=== PATIENT | male | born 1955 | race Two or more races ===

== ENCOUNTER 2024-09-10 10:15 | Day surgery (SDC) | payer MEDICARE, MEDICAID, SELFPAY ==
--- NOTE | 2024-09-09 07:00 | EKG_ITS ---
[facility] Test Date: 2024-09-09 Pat Name: SHOLA GARZA Department: Room: - Gender: Male [employer] Set Up Operator: PATRICIA : 1955 Requested By: Song Mcintyre Order Number: [id number] Reading MD: Song Mcintyre Measurements Intervals [place] Rate: 82 P: 65 KS: 144 QRS: 82 QRSD: 102 T: 46 QT: 354 QTc: 416 Interpretive Statements SINUS RHYTHM No previous ECG available for comparison /store/S0/[id number]/ecg/[id number].pdf
[2024-09-09 10:34] VITALS: BMI 26.8
[2024-09-09 11:03] LABS: Collection Type, Urine Clean Catch
[2024-09-09 11:15] LABS: Basophils # (Auto) 0.1 Thou/mm3 (0.0-0.2); Basophils % (Auto) 1 % (0-2.5); Eosinophils # (Auto) 0.1 Thou/mm3 (0.0-0.5); Eosinophils % (Auto) 2 % (0-10); Hematocrit 42.5 % (41.0-53.0); Hemoglobin 14.3 g/dL (13.5-16.0); Immature Granulocytes % (Auto) 2 % (0-0); Immature Granulocytes Auto 0.14 Thou/mm3 (0.00-0.00); Lymphocytes # (Auto) 1.8 Thou/mm3 (1.0-4.8); Lymphocytes % (Auto) 22 % (10-50); Mean Corpuscular HGB Conc 33.6 g/dl (31.0-37.0); Mean Corpuscular Hemoglobin 29.4 pg (25.0-35.0); Mean Corpuscular Volume 87 fL (80-100); Monocytes # (Auto) 0.7 Thou/mm3 (0.0-0.8); Monocytes % (Auto) 8 % (0-12); Neutrophils # (Auto) 5.5 Thou/mm3 (1.8-7.7); Neutrophils % (Auto) 66 % (37-80); Nucleated Red Blood Cell % 0 /100 WBC (0); Platelet Count 281 Thou/mm3 (140-440); RDW Standard Deviation 40.2 fL (35.1-43.9); Red Blood Count 4.86 Miln/mm3 (4.50-5.90); White Blood Count 8.2 Thou/mm3 (3.8-10.6)
--- NOTE | 2024-09-09 11:25 | ESHP_ITS ---
RE: SHOLA GARZA : 1955 DATE OF ADMISSION: 09/10/2024 HISTORY OF PRESENT ILLNESS: A 68-year-old gentleman who was referred to me with a history of elevated PSA of 12.1. The patient has a hard time urinating and has nocturia about 3 times. He is taking Flomax. There is no burning or no blood in the urine. PAST SURGICAL HISTORY: Included cholecystectomy. PAST MEDICAL HISTORY: The patient has no history of diabetes mellitus, but he has a history of hypertension. HOME MEDICATIONS: He takes; 1. Tamsulosin 0.4 mg every night. 2. Valsartan. 3. Aspirin. 4. Statin medication. ALLERGIES: NONE KNOWN. SOCIAL HISTORY: The patient has no children. PHYSICAL EXAMINATION: HEENT: Normal. NECK: Supple. LUNGS: Clear. CARDIOVASCULAR: Heart sounds are normal. ABDOMEN: Soft without any organomegaly. No guarding. No rigidity. EXTREMITIES: Normal. GENITOURINARY: Phallus is normal. Testes are down in scrotum. RECTAL: Mild firmness in the right prostatic lobe. LABORATORY DATA: Bladder scan revealed 212 mL of urine after he has urinated. IMPRESSION: 1. Prostatic obstruction. 2. Elevated PSA. PLAN: Cystoscopy and transrectal prostatic ultrasound with ultrasound-guided prostatic needle biopsy. Planned procedure, risks, and complications have been discussed with the patient. The patient has understood them and agreed to proceed. Thank you very much for your kind referral. cc: [facility] DT: 10:09:38 TT: 11:24:00 Ref: [id number] - TID: [id number]
[2024-09-09 11:38] LABS: Alanine Aminotransferase 20 U/L (10-49); Albumin, Serum 4.8 gm/dL (3.4-4.8); Albumin/Globulin Ratio 2.2 (1.2-2.2); Alkaline Phosphatase 90 U/L (46-116); Anion Gap 8 (7-16); Aspartate Amino Transferase 18 U/L (0-34); BUN/Creatinine Ratio 21 Ratio (12-20); Bilirubin,Total 0.4 mg/dL (0.3-1.2); Blood Urea Nitrogen 19 mg/dL (9-23); Calcium 9.5 mg/dL (8.3-10.6); Calcium (Corrected) 9.5 mg/dL (8.5-10.1); Carbon Dioxide 24.9 mMol/L (20.0-31.0); Chloride 104 mMol/L (98-107); Creatinine (Component) 0.9 mg/dL (0.6-1.3); Estimated Creatinine Clearance 68.9 mL/min (>60); Globulin 2.2 gm/dL (2.3-3.5); Glucose 105 mg/dL (74-106); Osmolality,Calculated 276 (275-295); Potassium 3.8 mMol/L (3.4-5.1); Sodium 137 mMol/L (136-145); eGFR > 60 See Note
[2024-09-09 11:46] LABS: Bilirubin,Urine Negative (Negative); Blood,Urine Negative (Negative); Clarity,Urine Clear (Clear/Hazy); Color,Urine Yellow (Lt Yel-Yel); Glucose, Urine Negative (Negative); Ketones,Urine Negative (Negative); Leukocyte Esterase,Urine Negative (Negative); Nitrite,Urine Negative (Negative); PH,Urine 6.5 (5.0-7.0); Protein,Urine Trace (Neg - Trace); RBC,Urine 2 /hpf (0-3); Squamous Epithelial Cell,Urine < 1 /hpf (0-5); WBC,Urine 3 /hpf (0-5)
--- NOTE | 2024-09-09 14:17 | SUR.PREOP ---
Pt's ernie Bob notified to bring pt tomorrow at 1030.
--- NOTE | 2024-09-09 14:47 | SUR.PREOP ---
Health history and echo cardiogram reviewed with Dr Barrientos.
[2024-09-10] VITALS (10 sets, daily range): BP systolic 93–172; BP diastolic 58–84; PULSE 68–118; RESP 12–20; TEMP 36.8–37.1; O2SAT 98–100; BMI 27.3
[2024-09-10] MEDS: RINGERS LACTATED 1000 ML 1,000 ML 20 ML IV (11:11)
--- NOTE | 2024-09-10 12:47 | SUR.PHASEI ---
1244 Patient arrived to recovery sleeping comfortably in [facility], allowed to sleep, on oxygen 8L via oxy mask, breathing unlabored, vital signs stable, report received from Efren VERDE and Shay MORAN
--- NOTE | 2024-09-10 14:16 | SUR.PHASEII ---
1416 Patient meets discharge criteria from recovery, awake and alert, breathing unlabored, vital signs stable, denies pain, ate a jello and drinking juice; denies nausea, patient voided in the restroom prior to discharge, able to dress himself into his clothing, discharge instructions given to patient and patients sister-in law, [id number] signed discharge instructions. Patient given all his belongings prior to discharge, transported via wheelchair and left in a private vehicle.
--- NOTE | 2024-09-11 12:47 | ESOP_ITS ---
RE: SHOLA GARZA : 1955 DATE OF OPERATION: 09/10/2024 PREOPERATIVE DIAGNOSES: Prostatism, prostatic obstruction and elevated PSA of . POSTOPERATIVE DIAGNOSES: Prostatism, prostatic obstruction, elevated PSA of , and tight phimosis with lot of collection of smegma underneath the foreskin. PROCEDURES PERFORMED: Removal of large amount of smegma from the head of the penis between the foreskin and the head of the penis, cystoscopy, and transrectal prostatic ultrasound with ultrasound-guided prostatic needle biopsy. ANESTHESIA: Monitored anesthesia by Dr. Giraldo. INDICATION: The patient is a 68-year-old gentleman with nocturia 3 times with PSA of . He was now scheduled to have cystoscopy and transrectal prostatic ultrasound with ultrasound-guided prostatic needle biopsy. Planned procedure, risks, and complications have been discussed with patient. The patient understood them and agreed to proceed. DESCRIPTION OF PROCEDURE: After the patient was brought to the operating table under adequate monitored anesthesia in dorsal lithotomy position, parts were prepped and draped in the usual fashion. The patient has a tight phimosis. He had a lot of collection of smegma underneath his foreskin between the head of the penis and the foreskin. This was cleared and the smegmas were removed. Cystoscopy was then carried out, which revealed adequate urethral meatus and normal-appearing urethra. The prostatic urethra revealed bilobed, moderately enlarged prostate. Residual urine was 5 ounces, yellow and clear and was sent for culture and sensitivity examination. There were no intravesical stones or tumors. The scope was withdrawn. The urethra was dilated. The patient was then turned in left lateral position. Transrectal prostatic ultrasound was carried out. Biopsies were obtained from both lobes using ultrasound guidance. The patient tolerated the entire procedure well and left the room in good condition. DT: 12:58:24 TT: 18:44:00 Ref: [id number] - TID: [id number]
== END 2024-09-10 14:16 | disposition home or self-care (01) ==
PROVIDERS: Anesthesiology; PCP Internal Medicine; Referring Provider Surgery; Visit Provider Surgery
PROC: 0TJB8ZZ Inspection of Bladder, Via Natural or Artificial Opening Endoscopic (ICD-10-PCS; CPT 52000; principal; 2024-09-10 12:15)
PROC: (CPT 55700; 2024-09-10 12:15)
DX: N40.1 Benign prostatic hyperplasia with lower urinary tract symptoms (principal); N13.8 Other obstructive and reflux uropathy; N47.1 Phimosis; R35.1 Nocturia; I10 Essential (primary) hypertension; Z90.49 Acquired absence of other specified parts of digestive tract
CPT/HCPCS: 55700; 76942; 52000; 36415; 80053; 81001; 85025; 87086; 93005; A4217; A4649; J0694; J2250; J2405; J2704; J3010; J7120